=== PATIENT | female | born 1965 | race Caucasian/White ===

== ENCOUNTER 2017-09-22 09:33 | Emergency (ER) | payer OTHER ==
[~2017-09-22] VITALS: Ht 157.5 cm; Wt 114.0 kg
[~2017-09-22 09:33] MED LIST: CLARITIN,ALAVAR10 MG PO; CRYSELLE1 EACH PO; DORZOLAMIDE-TIM10 ML BOTH EYES; FLOMAX0.4 MG PO; LATANOPROST2.5 ML BOTH EYES; LORTAB 5-325 M1 EACH PO; MOTRIN IB200 MG PO; NAPROSYN500 MG PO; PERCOCET 5/31 TABLET PO; RIZATRIPTAN10 MG PO; ZOFRAN ODT4 MG PO; [UNRECOGNIZED DRUG - CODE] DT
[2017-09-22 11:55] LABS: HEMOGLOBIN 13.4 G/DL (11.9-15.5); MCHC 33.5 G/DL (30.0-36.0); MCV 95.5 FL (83-99); PLATELET COUNT 296 K/uL (156-360); RBC DIS.WIDTH-CV 12.5 % (11.8-14.6); RBC DIS.WIDTH-SD 43.3 % (39-53); RED BLOOD COUNT 4.19 M/uL (3.80-5.20); WHITE BLOOD COUNT 11.1 K/uL (4.1-10.2)
[2017-09-22] MEDS ORDERED: KEFLEX500 MG PO (12:00)
[2017-09-22 12:04] LABS: PTT 26.4 SEC (25-37)
[2017-09-22 12:05] LABS: CHLORIDE 105 mEq/L (99-109); POTASSIUM 4.3 mEq/L (3.7-5.4); SODIUM 139 mEq/L (136-147)
[2017-09-22 12:07] LABS: GLUCOSE 88 mg/dL (70-99)
[2017-09-22 12:10] VITALS: BP 137/80
[2017-09-22 12:11] LABS: CREATININE 0.8 mg/dL (0.6-1.3); GFR ESTIMATE (CALCULATED) > 59 mL/min/
[2017-09-22 12:12] LABS: UREA NITROGEN (BUN) 12 mg/dL (9-23)
== END 2017-09-22 12:18 | disposition home or self-care (01) ==
LOC: EME 09:33
PROVIDERS: Nurse Practitioner Family
DX: L03.115 Cellulitis of right lower limb (principal); M79.604 Pain in right leg; Z79.3 Long term (current) use of hormonal contraceptives
CPT/HCPCS: 80048; 85027; 85610; 85730; 93971; 99281; 99284